=== PATIENT | male | born 1995 | race Caucasian/White ===

== ENCOUNTER 2020-04-01 10:02 | Outpatient (NON) | payer OTHER, SELFPAY ==
[2020-04-02 14:57] LABS: SARS-CoV-2 RNA PCR Negative
== END 2020-04-01 10:03 ==
LOC: ANHCOVIDDT 10:04
PROVIDERS: PCP Emergency Medicine; Visit Provider Emergency Medicine
DX: Z20.828 Contact with and (suspected) exposure to other viral communicable diseases (principal); R11.0 Nausea; R19.7 Diarrhea, unspecified
CPT/HCPCS: 87635; C9803; U0003